=== PATIENT | male | born 1975 | race Caucasian/White ===

== ENCOUNTER 2016-07-16 21:57 | Emergency (ER) | payer OTHER ==
[2016-07-16 22:06] VITALS: BP 159/90
== END 2016-07-17 00:45 | disposition left against medical advice (07) ==
LOC: ED 21:57
DX: Z53.21 Procedure and treatment not carried out due to patient leaving prior to being seen by health care provider (principal)

== ENCOUNTER 2017-08-26 13:47 | Emergency (ER) | payer MEDICAID ==
[~2017-08-26] VITALS: Ht 175.3 cm; Wt 67.6 kg
[2017-08-26 15:45] VITALS: BP 120/76
== END 2017-08-26 15:45 | disposition home or self-care (01) ==
LOC: ED 13:47
DX: M25.511 Pain in right shoulder (principal)
CPT/HCPCS: J1885

== ENCOUNTER 2017-11-28 19:13 | Emergency (ER) | payer MEDICAID ==
[~2017-11-28] VITALS: Ht 175.3 cm; Wt 67.1 kg
[2017-11-28 19:34] VITALS: Ht 175.3 cm; Wt 67.1 kg
[2017-11-28 22:23] VITALS: BP 134/87
== END 2017-11-28 22:23 | disposition home or self-care (01) ==
LOC: ED 19:13
DX: L03.115 Cellulitis of right lower limb (principal); R03.0 Elevated blood-pressure reading, without diagnosis of hypertension
CPT/HCPCS: J0696